=== PATIENT | male | born 1990 | race Caucasian/White ===

== ENCOUNTER 2018-10-19 18:06 | Emergency (ER) | payer OTHER ==
[~2018-10-19] VITALS: Ht 167.6 cm; Wt 77.1 kg
[2018-10-19 18:19] VITALS: BP 138/89
== END 2018-10-20 00:58 | disposition left against medical advice (07) ==
LOC: ER 18:11
DX: S61.011A Laceration without foreign body of right thumb without damage to nail, initial encounter (principal); Z53.21 Procedure and treatment not carried out due to patient leaving prior to being seen by health care provider; W26.0XXA Contact with knife, initial encounter; Y93.G3 Activity, cooking and baking; Y92.090 Kitchen in other non-institutional residence as the place of occurrence of the external cause; Y99.8 Other external cause status